=== PATIENT | male | born 1970 ===

== ENCOUNTER 2018-05-09 20:30 | Inpatient (IN) ==
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
[2018-05-09 21:00] LABS: Baso % (Auto) 0.3 % (0.0-2.0); Eos % (Auto) 0.2 % (0.0-4.0); Hematocrit 48.6 % (39.0-51.0); Hemoglobin 16.7 gm/dL (13.0-17.0); Lymph # (Auto) 1.3 th/mm3 (1.0-4.8); Mean Corpuscular HGB Conc 34.5 % (32.0-36.0); Mean Corpuscular Hemoglobin 31.6 pg (27.0-34.0); Mean Corpuscular Volume 91.8 fL (80.0-100.0); Mean Platelet Volume 7.6 fL (7.0-11.0); Mono # (Auto) 0.7 th/mm3 (0.0-0.9); Mono % (Auto) 7.1 % (0.0-8.0); Neut # (Auto) 8.5 th/mm3 (1.8-7.7); Neut % (Auto) 80.4 % (16.0-70.0); Platelet Count 261 th/mm3 (150-450); Red Blood Count 5.29 mil/mm3 (4.50-5.90); Red Cell Distribution Width 13.1 % (11.6-17.2); White Blood Count 10.5 th/mm3 (4.0-11.0)
[2018-05-09] MEDS ORDERED: Post-op Orders (for Pharmacy) OTHER ONE (21:03)
[2018-05-09] MEDS ORDERED: Bisacodyl 10 MG Supp RECTAL PRN (21:03)
[2018-05-09] MEDS ORDERED: Naloxone Inj 0.4 MG/ML Vial IV.PUSH PRN (21:03)
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
[2018-05-09 21:06] LABS: Activated Partial Thrombo Time 21.3 sec (24.3-30.1); Prothrombin Time 10.5 sec (9.8-11.6)
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
[2018-05-09] MEDS ORDERED: Sod Chloride 0.9% Inj 1,000 ML IV.CONT SCH (22:00)
[2018-05-09] MEDS: Morphine Inj 4 MG/ML Vial IV.PUSH PRN (22:06)
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
[2018-05-10] MEDS: Morphine Inj 4 MG/ML Vial IV.PUSH PRN ×5 (00:10→10:59)
[2018-05-10] MEDS ORDERED: Labetalol HCl Inj 100 MG/20 ML Vial IV.PUSH PRN (03:57)
[2018-05-10] MEDS ORDERED: Aluminum/Magnesium/Simethacone Susp 30 ML UDC PO PRN (03:57)
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
[2018-05-10] MEDS: Baclofen 10 MG Tablet PO SCH ×3 (06:14→22:22)
[2018-05-10] MEDS ORDERED: Gabapentin 100 MG Capsule PO SCH (09:00)
[2018-05-10] MEDS: Senna/Docusate Sodium 8.6/50 MG Tablet PO SCH ×2 (11:03→22:22)
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
[2018-05-10] MEDS: Gabapentin 300 MG Capsule PO SCH ×2 (15:14→19:35)
[2018-05-11] MEDS: Morphine Inj 4 MG/ML Vial IV.PUSH PRN (04:57)
[2018-05-11] MEDS: Baclofen 10 MG Tablet PO SCH ×3 (05:22→21:04)
[2018-05-11] MEDS: Senna/Docusate Sodium 8.6/50 MG Tablet PO SCH ×2 (08:55→21:04)
[2018-05-11] MEDS: Gabapentin 300 MG Capsule PO SCH ×3 (08:55→17:21)
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
[2018-05-11] MEDS: oxyCODONE/Acetaminophen 10/325 Tablet PO PRN ×3 (12:02→21:04)
--- NOTE | 2018-05-11 12:42 | P.PNNS ---
Subjective Interval history: Pt awake and alert sitting up in bed. Complains of hypersensitivity with burning in shoulders and upper chest. Some paresthesias in hands and UEs also. States he gets shocking pain in upper chest and shoulders that doesn't last long and is exacerbated by touch. No bowel or bladder incontinence. Pt states he feels his strength is good in his legs and UEs although pain is limiting him from wanting to move too much with the UEs. <Alex Ya - Last Filed: 05/11/18 12:29> Physical Exam Vital signs: Vital Signs 05/10/18 14:00 05/10/18 16:00 05/10/18 18:00 Temperature 98.1 F Pulse Rate 58 L 58 L 62 Respiratory Rate 18 Blood Pressure 124/70 Pulse Oximetry 97 05/10/18 20:00 05/10/18 20:53 05/10/18 22:00 Temperature 98.5 F Pulse Rate 68 61 Respiratory Rate 16 Blood Pressure 138/85 Pulse Oximetry 98 99 05/11/18 00:00 05/11/18 02:00 05/11/18 04:00 Temperature 98.7 F 98.6 F Pulse Rate 57 L 62 62 Respiratory Rate 12 19 Blood Pressure 144/66 H 152/88 H Pulse Oximetry 97 98 05/11/18 06:00 05/11/18 07:38 05/11/18 08:00 Temperature Pulse Rate 67 Respiratory Rate Blood Pressure Pulse Oximetry 97 98 Intake & Output 05/10/18 05/11/18 05/11/18 18:59 06:59 18:59 Intake Total 960 / 960 Balance 960 / 960 Weight 85.3 kg Intake: Oral 960 / 960 Other: # Voids 4 Date of Last Bowel Movement 05/09/18 - Constitutional mild distress (secondary to burning and discomfort in shoulders and upper chest. ) - Routine HEENT Exam Head: Present: normocephalic, atraumatic Eye: Present: PERRL. Absent: conjunctival icterus ENT: Present: oropharynx clear - Routine Respiratory Exam Present: CTA bilaterally. Absent: respiratory distress, rhonchi, wheezes - Routine Cardiovascular Exam Present: RRR, S1, S2. Absent: murmur - Routine Abdominal Exam Present: soft, normoactive bowel sounds. Absent: tenderness, distended - Routine Extremities Exam Absent: cyanosis, edema - Routine Skin Exam Absent: cyanosis, erythema - Routine Neurological Exam Present: alert, oriented X3, sensory deficit (hypersensitivity in upper chest, neck and shoulders. Numbness with paresthesias in hands and upper extremities.) , motor deficit (Pt feels he has good strengh in UEs and LE but is limited with UEs secondary to exacerbation of his pain from hypersensitivity.), moving all extremities (Ambulates to bathroom.), normal speech - Routine Psychiatric Exam Present: normal affect, normal thought process, cooperative, good judgment - Urinary Catheter Management Indwelling Urethral Catheter Cath placed during this visit: yes, but has since been removed by the nurse Reason for continuing: Decision to DC catheter Insertion date: 05/10/18 Insertion time: 07:31 Removal date: 05/10/18 Removal time: 11:00 <Alex Ya - Last Filed: 05/11/18 12:29> Vital signs: Vital Signs 05/10/18 14:00 05/10/18 16:00 05/10/18 18:00 Temperature 98.1 F Pulse Rate 58 L 58 L 62 Respiratory Rate 18 Blood Pressure 124/70 Pulse Oximetry 97 05/10/18 20:00 05/10/18 20:53 05/10/18 22:00 Temperature 98.5 F Pulse Rate 68 61 Respiratory Rate 16 Blood Pressure 138/85 Pulse Oximetry 98 99 05/11/18 00:00 05/11/18 02:00 05/11/18 04:00 Temperature 98.7 F 98.6 F Pulse Rate 57 L 62 62 Respiratory Rate 12 19 Blood Pressure 144/66 H 152/88 H Pulse Oximetry 97 98 05/11/18 06:00 05/11/18 07:38 05/11/18 08:00 Temperature 98.4 F Pulse Rate 67 65 Respiratory Rate 12 Blood Pressure 153/90 H Pulse Oximetry 97 92 L 05/11/18 10:00 05/11/18 12:00 Temperature 98.2 F Pulse Rate 66 68 Respiratory Rate 19 Blood Pressure 158/97 H Pulse Oximetry 98 Intake & Output 05/10/18 05/11/18 05/11/18 18:59 06:59 18:59 Intake Total 960 / 960 Balance 960 / 960 Weight 85.3 kg Intake: Oral 960 / 960 Other: # Voids 4 Date of Last Bowel Movement 05/09/18 - Urinary Catheter Management Indwelling Urethral Catheter Cath placed during this visit: no <Higinio Asif - Last Filed: 05/11/18 13:48> Assessment and Plan - Assessment (1) Injury of cervical spine Code(s): S14.109A - Unspecified injury at unspecified level of cervical spinal cord, initial encounter Status: Acute Qualifiers: Encounter type: initial encounter Qualified Code(s): S14.109A - Unspecified injury at unspecified level of cervical spinal cord, initial encounter (2) Cervical spinal cord injury Code(s): S14.109A - Unspecified injury at unspecified level of cervical spinal cord, initial encounter Status: Acute Qualifiers: Encounter type: initial encounter Qualified Code(s): S14.109A - Unspecified injury at unspecified level of cervical spinal cord, initial encounter (3) Cervical spinal stenosis Code(s): M48.02 - Spinal stenosis, cervical region Status: Acute - Plan Continue with Neurontin 300mg tid Continue with Baclofen for spasms. Continue to get oob with assistance/observation Transfer to med/surg. <Alex Ya - Last Filed: 05/11/18 12:29> - Assessment (1) Cervical spinal cord injury Code(s): S14.109A - Unspecified injury at unspecified level of cervical spinal cord, initial encounter Status: Acute Qualifiers: Encounter type: initial encounter Qualified Code(s): S14.109A - Unspecified injury at unspecified level of cervical spinal cord, initial encounter (2) Cervical spinal stenosis Code(s): M48.02 - Spinal stenosis, cervical region Status: Acute - Attending Attestation The exam, history, and the medical decision-making described in the above note were completed with the assistance of the mid-level provider. I reviewed and agree with the findings presented. I attest that I had a [id number] encounter with the patient on the same day, and personally performed and documented my assessment and findings in the medical record. Overall stable neurologic examination with still dysesthesias in the shoulders and upper chest wall. Was able to ambulate and overall feels better. Continue to increase activity status as tolerated and anticipate discharge in the next day or so if remains stable. Patient and his relate that they have arranged for follow- up with neurosurgery at the [facility] in [place] where they reside. I would recommend that he keep the cervical collar on for the next 2 weeks and subsequently obtain flexion extension x-rays to rule out any soft tissue injury. <Higinio Asif - Last Filed: 05/11/18 13:48>
--- NOTE | 2018-05-11 16:24 | P.DIET ---
Nutritional Evaluation Type of nutrition evaluation: initial Nutrition screening: Weight Loss > 10 lbs Subjective Subjective Comments: Admission Screening w/pt reports appetite is good; no recent wt loss reported Objective - Diagnosis Trauma Alert: spine contusion, transient paralysis, parestesia - Objective [place] body weight: 72.7 kg % IBW: 118 Body Weight Used for Calculations: Actual (85.4kg used for assessment) Energy Needs - Lower Range (kCal/kg): 22 Energy Needs - Upper Range (kCal/kg): 27 Lower Limit kCal/kg (kCals): 1,879 Upper Limit kCal/kg (kCals): 2,306 Lower Limit Protein Factor (Grams per Kg): 1.1 Upper Limit Protein Factor (Grams per Kg): 1.4 Lower Protein Needs (Protein): 94 Upper Protein Needs (Protein): 120 Dietitian Reviewed in Medical Record: Current diet, Curent medications, Intake & Output, Labs Diet Order: Regular Oral Diet Intake Amount: Good 75-90% Assessment Assessment: Nutrition Assessment for recent wt loss; however, pt reports no recent wt loss. Pt is tolerating current diet w/Adequate po intake for meals recorded 50% or greater. Please Consult RD if Needed. Recommendations: Please Consult RD if Needed
[2018-05-11] MEDS: Enoxaparin Inj 40 MG/0.4 ML Syringe SQ SCH (18:55)
[2018-05-12] MEDS: oxyCODONE/Acetaminophen 10/325 Tablet PO PRN ×4 (00:44→13:54)
[2018-05-12] MEDS: Baclofen 10 MG Tablet PO SCH ×2 (05:04→13:53)
[2018-05-12 05:05] LABS: Carbon Dioxide 28.4 meq/L (21.0-32.0); Potassium 4.1 meq/L (3.5-5.1)
[2018-05-12 05:08] LABS: Baso % (Auto) 0.1 % (0.0-2.0); Hematocrit 43.3 % (39.0-51.0); Hemoglobin 14.8 gm/dL (13.0-17.0); Lymph % (Auto) 10.4 % (9.0-44.0); Mean Corpuscular HGB Conc 34.3 % (32.0-36.0); Mean Corpuscular Hemoglobin 32.5 pg (27.0-34.0); Mean Corpuscular Volume 94.8 fL (80.0-100.0); Mono # (Auto) 0.5 th/mm3 (0.0-0.9); Neut # (Auto) 7.9 th/mm3 (1.8-7.7); Neut % (Auto) 84.5 % (16.0-70.0); Platelet Count 246 th/mm3 (150-450); Red Blood Count 4.57 mil/mm3 (4.50-5.90); Red Cell Distribution Width 13.1 % (11.6-17.2); White Blood Count 9.4 th/mm3 (4.0-11.0)
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
[2018-05-12] MEDS: Senna/Docusate Sodium 8.6/50 MG Tablet PO SCH (10:08)
[2018-05-12] MEDS: Gabapentin 400 MG Capsule PO SCH ×2 (10:08→13:53)
[2018-05-12] MEDS: Enoxaparin Inj 40 MG/0.4 ML Syringe SQ SCH (10:11)
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
== END 2018-05-12 14:31 | disposition home or self-care (01) ==
LOC: NEPI 20:30 → NEDA 21:05 → EDBD 21:05 → N03 23:49 → N07 05-12 04:27
PROVIDERS: ADMIT Surgery; ATTEND Surgery